=== PATIENT | female | born 1960 | race Caucasian/White ===

== ENCOUNTER → 2016-06-16 | Day surgery (SDC) | payer BC ==
[~2016-06-16] MED LIST: ACETAMINOPHEN PO; AVALIDE 300-12.1 TAB PO; BYSTOLIC5 MG PO; COLACE PO; ELESTRIN144 GM TD; FLEXERIL10 M1 PO; HYDROCHLOROTH12.5 M1 PO; HYDROCHLOROTH12.5 MG PO; LOESTRIN1 TA1 PO; MULTIPLE VITAMI1 T12 PO; NAPROSYN500 MG PO; PERCOCET5/325 PO; PREMARIN0.9 MG PO; TEKTURNA150 MG PO; TYLOX1 CAP 5/50 PO; VISTARIL PO; WELLBUTRIN SR150 MG PO
--- NOTE | ~2016-06-16 | OR ---
Unit #: [id number] #: [id number] Patient: CHARLEY SEPULVEDA [id number] [address] [address] [id number] O MR#: [id number] NAME: CHARLEY SEPULVEDA ROOM: Date of Procedure: 06/16/2016 Admission Date: 06/16/2016 Surgeon: Peng Carreno M.D. : 1960 Attending Physician: Peng Carreno M.D. Primary Care Physician: Vivian Irene M.D. OPERATIVE REPORT PREOPERATIVE DIAGNOSIS Abdominal pain. POSTOPERATIVE DIAGNOSIS Sigmoid diverticulum. PROCEDURE PERFORMED Colonoscopy to cecum. ANESTHESIA IV sedation. COMPLICATIONS None. INDICATIONS FOR PROCEDURE The patient is a 55-year-old lady, who presents with complex history of abdominal pain. None current. She presents for left lower quadrant abdominal pain. She presents for endoscopic evaluation. DESCRIPTION OF PROCEDURE The patient was taken to the operating theater and placed in left lateral decubitus position. IV sedation was initiated. Digital rectal exam was normal. Colonoscope was then passed under direct vision and navigated to the cecum. The patient had an excellent prep. I saw some scattered diverticula mainly in the sigmoid colon. These were noninflamed. There were no neoplastic lesions. She tolerated the procedure well and sent to the recovery room in good condition. We will treat with Colace on a daily basis. Dictated by... Peng Carreno M.D. JNO/modl TD: 06/17/2016 05:11 JOB #: [id number] Unit #: [id number] #: [id number] Patient: CHARLEY SEPULVEDA OPERATIVE REPORT Page 1 of 1 X Peng Carreno MD PROCEDURE OPERATIVE NOTE
== END | disposition home or self-care (01) ==
LOC: COPS 11:03
DX: K57.30 Diverticulosis of large intestine without perforation or abscess without bleeding (principal); R10.32 Left lower quadrant pain; K58.9 Irritable bowel syndrome, unspecified; Z80.0 Family history of malignant neoplasm of digestive organs; I10 Essential (primary) hypertension; E66.01 Morbid (severe) obesity due to excess calories; Z68.41 Body mass index [BMI] 40.0-44.9, adult; Z91.040 Latex allergy status; Z88.2 Allergy status to sulfonamides; Z85.528 Personal history of other malignant neoplasm of kidney; Z90.5 Acquired absence of kidney
CPT/HCPCS: J2250

== ENCOUNTER → 2016-06-23 | Outpatient (CLI) | payer BC ==
--- NOTE | ~2016-06-23 | CR63 ---
[facility] A Service of [facility] [place] & [facility] RADIOLOGY TEXT RESULTS PATIENT: CHARLEY SEPULVEDA LOCATION: [facility] : 58 UNIT #: [id number] AGE: [address]: Jian Roche MD SEX: F ORDER DR: [id number] [facility] [address] [place], [place] [address] [id number] O MR#: [id number] Acc #: [id number] NAME: CHARLEY SEPULVEDA : 1960 SEX: F STUDY DATE/TIME: 06/23/2016 12:59 UNIT: [facility] ROOM: STUDY DESCRIPTION: CR Chest 2 View Attending Physician: Jian Roche M.D. Referring Physician: Jian Roche M.D. Ordering Physician: Jian Roche M.D. Primary Care Physician: Vivian Irene M.D. MEDICAL IMAGING REPORT This report is preliminary unless electronic signature is present EXAM Chest 06/23/2016 HISTORY 56-year-old woman. History of renal carcinoma. Hypertensive. Past history of pneumonia. COMPARISON Chest 06/04/2015. FINDINGS PA and lateral chest views show normal stable heart size. Small calcified hilar and mediastinal nodes are associated with a granuloma in the left lower lobe. Lungs are, otherwise, clear with no new pulmonary nodules. Costophrenic angles are distinct. IMPRESSION Healed granulomatous disease. Stable chest with no acute finding. Dictated by... Scott Awad M.D. THIS IS AN ELECTRONICALLY VERIFIED REPORT Scott Awad M.D. at 06/24/2016 8:01 AM JACKY/tmii TD: 06/23/2016 15:49 JOB #: [id number] MEDICAL IMAGING REPORT Page 1 of 1 COPY
[2016-06-23 12:31] LABS: HEMATOCRIT 39.6 % (35.0-45.0); HEMOGLOBIN 12.9 gm/dL (12.0-16.0); MEAN CELL VOLUME 91.7 FL (83-96); MEAN CORPUSCULAR HEMOGLOBIN 29.8 PG (28-34); MEAN CORPUSCULAR HGB CONC 32.5 g/dL (30-36); MEAN PLATELET VOLUME 8.3 FL (6.5-11.5); RED BLOOD COUNT 4.32 X10e (3.90-5.30); RED CELL DISTRIBUTION WIDTH 13.8 % (11.0-15.5); WHITE BLOOD COUNT 8.9 X10e3 (4.0-10.5)
[2016-06-23 13:20] LABS: ALBUMIN SERUM 4.1 g/dL (3.5-5.0); BILIRUBIN,TOTAL 0.4 mg/dL (0.2-2.0); BUN/CREATININE RATIO 23.75; CALCIUM SERUM 9.2 mg/dL (8.4-10.2); CREATININE SERUM 0.8 mg/dL (0.6-1.4); GLOM FILT RATE Estimated 81.9 mL/min (>60); POTASSIUM 4.2 mmol/L (3.5-5.1); PROTEIN TOTAL SERUM 7.6 g/dL (6.0-8.3)
== END | disposition home or self-care (01) ==
LOC: CRAD 11:16
PROVIDERS: Urology
DX: C64.2 Malignant neoplasm of left kidney, except renal pelvis (principal)
CPT/HCPCS: 36415; 71020; 80053; 85027